=== PATIENT | female | born 2000 | race Caucasian/White ===

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

== ENCOUNTER 2019-04-17 21:15 | Emergency (ER) | payer BC ==
[2019-04-17 21:26] VITALS: BP 126/73
--- NOTE | 2019-04-17 21:44 | UC ---
Throat Pain/Nasal Christopher HPI - HPI Summary HPI Summary: C/O sore throat x 2 days with some swollen neck glands. No fevers/ congestion or coughing. - History of Current Complaint Chief Complaint: UCGeneralIllness Stated Complaint: SORE THROAT Time Seen by Provider: 04/17/19 21:24 Hx Obtained From: Patient Hx Last Menstrual Period: 04/10/19 ?: No Onset/Duration: Sudden Onset, Lasting Days, Still Present Severity: Moderate Pain Intensity: 7 Cough: None Associated Signs & Symptoms: Positive: Dysphagia, Nasal Discharge. Negative: Fever, Rash - Allergies/Home Medications Allergies/Adverse Reactions: Allergies Allergy/AdvReac Type Severity Reaction Status Date / Time No Known Allergies Allergy Verified 04/17/19 21:26 PMH/Surg Hx/FS Hx/Imm Hx Previously Healthy: Yes - Surgical History Surgical History: None - Family History Known Family History: Positive: None Negative: Cardiac Disease, Hypertension - Social History Occupation: Employed Part-time, Student Lives: With Family Alcohol Use: Occasionally Substance Use Type: None Smoking Status (MU): Never Smoked Tobacco Review of Systems All Other Systems Reviewed And Are Negative: Yes ENT: Positive: Sore Throat Respiratory: Positive: Cough - after exercising Physical Exam Triage Information Reviewed: Yes Appearance: Well-Appearing, No Pain Distress, Well-Nourished Vital Signs: Initial Vital Signs Temp 97.9 F 04/17/19 21:23 Pulse 82 04/17/19 21:23 Resp 20 04/17/19 21:23 BP 126/73 04/17/19 21:23 Pulse Ox 100 04/17/19 21:23 Vital Signs Reviewed: Yes Eyes: Positive: Conjunctiva Clear ENT: Positive: Pharynx normal, Nasal congestion - with allergic changes, TMs normal Neck: Positive: Supple, Tenderness @ - anterior cervical nodes, Enlarged Nodes @ - bilateral anterior cervical nodes Respiratory Exam: Normal Cardiovascular Exam: Normal Musculoskeletal Exam: Normal Neurological Exam: Normal Psychological Exam: Normal Skin Exam: Normal Diagnostics - Laboratory Lab Results: Rapid strep is negative Throat Pain/Nasal Course/Dx - Differential Dx/Diagnosis Differential Diagnosis/HQI/PQRI: Laryngitis, Pharyngitis, Sinusitis, Tonsillitis Provider Diagnosis: Allergic rhinitis, Exercise-induced asthma Discharge ED - Sign-Out/Discharge Documenting (check all that apply): Patient Departure All imaging exams completed and their final reports reviewed: No Studies - Discharge Plan Condition: Stable Disposition: HOME Prescriptions: Montelukast Sodium TAB* [Singulair 10 MG TAB*] 10 mg PO BEDTIME #30 tab Patient Education Materials: Allergic Rhinitis (ED), Exercise-Induced Bronchoconstriction (ED), Montelukast (By mouth) Referrals: Valerie Christopher NP [Primary Care Provider] - - Billing Disposition and Condition Condition: STABLE Disposition: Home
== END 2019-04-17 21:57 | disposition home or self-care (01) ==
LOC: UCCORT 21:15
DX: J30.9 Allergic rhinitis, unspecified (principal); J45.990 Exercise induced bronchospasm
CPT/HCPCS: 87651; 99212; G0463